=== PATIENT | female | born 2000 | race Caucasian/White ===

== ENCOUNTER 2024-12-15 22:12 | Emergency (ER) | payer SELFPAY ==
[~2024-12-15] VITALS: Ht 165.1 cm; Wt 70.0 kg
[2024-12-15 22:15] VITALS: BP 124/86; PULSE 70; RESP 14; TEMP 36.6; O2SAT 98
== END 2024-12-16 00:48 | disposition left against medical advice (07) ==
LOC: ER 22:12
DX: F10.129 Alcohol abuse with intoxication, unspecified (principal); Y90.9 Presence of alcohol in blood, level not specified
CPT/HCPCS: 99283; 99284